=== PATIENT | female | born 1945 | race Caucasian/White ===

== ENCOUNTER 2024-09-24 18:05 | Emergency (ER) | payer MEDICARE ==
--- NOTE | 2024-09-24 18:30 | ERPHSYRPT ---
- History of Present Illness Time Seen by Provider: 09/24/24 18:24 Source: patient Exam Limitations: no limitations Patient Subjective Stated Complaint: PT HERE FOR THREATENING TO WRAP O2 CORD AROUND HER NECK AT THE [facility], THEY STATE BY POLICY THE HAVE TO BRING HER TO ER, PT DENIES WANTING TO HARM HER SELF AND SHE IS DOES NOT KNOW WHY SHE IS HERE Triage Nursing Assessment: PT ALERT, BUT CONFUSED, O2 PER 2L NC , ABD SOFT, RESP EASY, NO COUGH, Physician History: 79-year-old female baseline dementia presents to our ED for evaluation of suicide gesture. Per custodial report, patient threatened to wrap a oxygen cord around her neck. Patient denies making these threats. Patient otherwise feels well. She denies pain. Patient voices no other complaints or concerns at this time. Portions of this note were created with voice recognition technology. There may be grammatical, spelling, punctuation or sound alike errors Timing/Duration: today Severity: moderate Modifying Factors: Improves With: nothing Associated Symptoms: denies symptoms Allergies/Adverse Reactions: ciprofloxacin [From Cipro] Allergy (Unknown, Verified 09/24/24 22:13) codeine Allergy (Unknown, Verified 09/24/24 22:13) gabapentin Allergy (Unknown, Verified 09/24/24 22:13) Influenza Virus Vaccines Allergy (Unknown, Verified 09/24/24 22:13) kiwi Allergy (Unknown, Verified 09/24/24 22:13) latex Allergy (Unknown, Verified 09/24/24 22:13) testosterone Allergy (Unknown, Verified 09/24/24 22:13) Immunizations Up to Date: Yes Travel Risk - International Travel Have you traveled outside of the country in past 3 weeks: No - Emerging Infectious Disease Are you exhibiting symptoms associated with any current EIDs: No - Review of Systems Constitutional: No Symptoms, No Fever, No Chills Eyes: No Symptoms Ears, Nose, & Throat: No Symptoms Respiratory: No Symptoms, No Cough, No Dyspnea Cardiac: No Symptoms, No Chest Pain, No Edema, No Syncope Abdominal/Gastrointestinal: No Symptoms, No Abdominal Pain, No Nausea, No Vomiting, No Diarrhea Genitourinary Symptoms: No Symptoms, No Dysuria Musculoskeletal: No Symptoms, No Back Pain, No Neck Pain Skin: No Symptoms, No Rash Neurological: No Symptoms, No Dizziness, No Focal Weakness, No Sensory Changes Psychological: No Symptoms Endocrine: No Symptoms Hematologic/Lymphatic: No Symptoms Immunological/Allergic: No Symptoms All Other Systems: Reviewed and Negative - Past Medical History Pertinent Past Medical History: Yes Cardiac History: Hypertension Endocrine Medical History: Diabetes Type II, Hypothyroidism GI Medical History: GERD Psycho-Social History: Anxiety, Depression - Past Surgical History Past Surgical History: (UNKNOWN) - Social History Smoking Status: Former smoker Exposure to second hand smoke: No Drug Use: none - Social Determinants of Health Will the patient participate in the screening: Unable to obtain - Nursing Vital Signs Nursing Vital Signs: Initial Vital Signs Temperature 96.1 F 09/24/24 18:10 Pulse Rate 90 09/24/24 18:10 Respiratory Rate 17 09/24/24 18:10 Blood Pressure 174/101 09/24/24 18:10 O2 Sat by Pulse Oximetry 98 09/24/24 18:10 Pain Scale Pain Intensity 0 - Physical Exam General Appearance: no apparent distress, alert Eye Exam: PERRL/EOMI, eyes nml inspection Ears, Nose, Throat Exam: normal ENT inspection, TMs normal, pharynx normal, moist mucous membranes Neck Exam: normal inspection, non-tender, supple, full range of motion Respiratory Exam: normal breath sounds, lungs clear, airway intact, No respiratory distress Cardiovascular Exam: regular rate/rhythm, normal heart sounds, normal peripheral pulses Gastrointestinal/Abdomen Exam: soft, normal bowel sounds, No tenderness, No mass Back Exam: normal inspection, normal range of motion, No CVA tenderness, No vertebral tenderness Extremity Exam: normal inspection, normal range of motion, pelvis stable Neurologic Exam: alert, oriented x 3, cooperative, normal mood/affect, sensation nml, No motor deficits Skin Exam: normal color, warm, dry, No rash Lymphatic Exam: No adenopathy SpO2 Interpretation: normal SpO2: 98 O2 Delivery: Room Air - Course Nursing assessment & vital signs reviewed: Yes - CT Exams Head CT Interpretation: Tele-radiologist Report (Nonacute senile brain) Ordered Tests: Active Orders 24 hr Category Date 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 Care 09/24/24 18:27 Active IV Insertion STAT Care 09/24/24 18:26 Active HEAD WITHOUT CONTRAST [CT] Stat Exams 09/24/24 18:27 Taken ACETAMINOPHEN Stat Lab 09/24/24 18:35 Completed CBC W DIFF Stat Lab 09/24/24 18:35 Completed CMP Stat Lab 09/24/24 18:35 Completed CULTURE,URINE Stat Lab 09/24/24 20:44 Received ETHYL ALCOHOL Stat Lab 09/24/24 18:35 Completed SALICYLATE Stat Lab 09/24/24 18:35 Completed UA W/RFX UR CULTURE Stat Lab 09/24/24 20:44 Completed Urine Triage Profile Stat Lab 09/24/24 19:15 Completed Medication Summary Discontinued Medications Generic Name Dose Route Start Last Admin Trade Name Yuriy PRN Reason Stop Dose Admin Ceftriaxone Sodium 1 gm in 100 mls @ 200 mls/hr 09/24/24 22:06 09/24/24 22:21 Rocephin 1 Gm / 100 Ml Nacl IV 09/24/24 22:35 20 ml/hr STAT ONE 20 mls/hr Administration Ceftriaxone Sodium Confirm 09/24/24 22:20 Rocephin 1 Gm / 100 Ml Nacl Administered 09/24/24 22:21 Dose 1 gm in 100 mls @ ud IV .STK-MED ONE Lab/Rad Data: Laboratory Result Diagrams 09/24/24 18:35 09/24/24 18:35 Laboratory Results 09/24/24 09/24/24 09/24/24 Range/Units 20:44 19:15 18:35 WBC (3.98-10.04) x10^3/uL RBC (3.93-5.22) x10^6/uL Hgb (11.2-15.7) g/dL Hct (34.1-44.9) % MCV (79.4-94.8) fL MCH (25.6-32.2) pg MCHC (32.2-35.5) g/dL RDW (11.7-14.4) % Plt Count (182-369) x10^3/uL MPV (9.4-12.3) fL Gran % (34.0-71.1) % Immature Gran % (Auto) (0.001-0.429) % Nucleat RBC Rel Count (0.00-0.2) % Eos # (Auto) (0.04-0.36) x10^3/uL Immature Gran # (Auto) (0.001-0.031) x10^3u/L Absolute Lymphs (auto) (1.18-3.74) x10^3/uL Absolute Monos (auto) (0.24-0.86) x10^3/uL Absolute Nucleated RBC (0.00-0.012) x10^3u/L Lymphocytes % (19.3-51.7) % Monocytes % (4.7-12.5) % Eosinophils % (0.7-5.8) % Basophils % (0.1-1.2) % Absolute Granulocytes (1.56-6.13) x10^3/uL Basophils # (0.01-0.08) x10^3/uL Sodium 137 (135-145) mmol/L Potassium 3.4 L (3.5-5.1) mmol/L Chloride 100 (98-107) mmol/L Carbon Dioxide 36 H (22-30) mmol/L Anion Gap 4.1 L (5-15) MEQ/L BUN 24 H (7-17) mg/dL Creatinine 0.88 (0.52-1.04) mg/dL Estimated GFR 66.4 ML/MIN Glucose 118 H (74-106) mg/dL Calcium 9.4 (8.4-10.2) mg/dL Total Bilirubin 0.30 (0.2-1.3) mg/dL AST 23 (14-36) U/L ALT 13 (0-35) U/L Alkaline Phosphatase 68 (38-126) U/L Serum Total Protein 6.1 L (6.3-8.2) g/dL Albumin 2.7 L (3.5-5.0) g/dL Urine Color Yellow (Yellow) Urine Appearance Cloudy A (Clear) Urine pH 7.0 (4.6-8.0) Ur Specific [place] 1.020 (1.005-1.030) Urine Protein >=1000 A (Negative) Urine Glucose (UA) Negative (Negative) mg/dL Urine Ketones Negative (Negative) Urine Blood Large A (Negative) Urine Nitrite Positive A (Negative) Urine Bilirubin Negative (Negative) Urine Urobilinogen 1.0 A (0.2) mg/dL Ur Leukocyte Esterase Small A (Negative) U Hyaline Cast (Auto) 3-5 A (0-2) /LPF Urine Microscopic RBC >100 A (0-5) /HPF Urine Microscopic WBC >100 A (0-5) /HPF Ur Epithelial Cells None Seen (None Seen) /HPF Urine Bacteria Many A (None Seen) /HPF Urine Culture Reflexed YES (NO) Salicylates < 1.0 L (2-20) mg/dL Urine Opiates Level POSITIVE A (NEGATIVE) Ur Methadone NEGATIVE (NEGATIVE) Acetaminophen < 10 L (10-30) ug/ml Urine Barbiturates NEGATIVE (NEGATIVE) Ur Phencyclidine (PCP) NEGATIVE (NEGATIVE) Urine Amphetamine NEGATIVE (NEGATIVE) U Benzodiazepine Level POSITIVE A (NEGATIVE) Urine Cocaine NEGATIVE (NEGATIVE) Urine Marijuana (THC) NEGATIVE (NEGATIVE) Ethyl Alcohol < 10 (0-10) mg/dL 09/24/24 Range/Units 18:35 WBC 7.0 (3.98-10.04) x10^3/uL RBC 3.64 L (3.93-5.22) x10^6/uL Hgb 11.0 L (11.2-15.7) g/dL Hct 34.4 (34.1-44.9) % MCV 94.5 (79.4-94.8) fL MCH 30.2 (25.6-32.2) pg MCHC 32.0 L (32.2-35.5) g/dL RDW 14.1 (11.7-14.4) % Plt Count 216 (182-369) x10^3/uL MPV 9.5 (9.4-12.3) fL Gran % 74.3 H (34.0-71.1) % Immature Gran % (Auto) 0.3 (0.001-0.429) % Nucleat RBC Rel Count 0.0 (0.00-0.2) % Eos # (Auto) 0.08 (0.04-0.36) x10^3/uL Immature Gran # (Auto) 0.02 (0.001-0.031) x10^3u/L Absolute Lymphs (auto) 1.37 (1.18-3.74) x10^3/uL Absolute Monos (auto) 0.33 (0.24-0.86) x10^3/uL Absolute Nucleated RBC 0.00 (0.00-0.012) x10^3u/L Lymphocytes % 19.5 (19.3-51.7) % Monocytes % 4.7 (4.7-12.5) % Eosinophils % 1.1 (0.7-5.8) % Basophils % 0.1 (0.1-1.2) % Absolute Granulocytes 5.23 (1.56-6.13) x10^3/uL Basophils # 0.01 (0.01-0.08) x10^3/uL Sodium (135-145) mmol/L Potassium (3.5-5.1) mmol/L Chloride (98-107) mmol/L Carbon Dioxide (22-30) mmol/L Anion Gap (5-15) MEQ/L BUN (7-17) mg/dL Creatinine (0.52-1.04) mg/dL Estimated GFR ML/MIN Glucose (74-106) mg/dL Calcium (8.4-10.2) mg/dL Total Bilirubin (0.2-1.3) mg/dL AST (14-36) U/L ALT (0-35) U/L Alkaline Phosphatase (38-126) U/L Serum Total Protein (6.3-8.2) g/dL Albumin (3.5-5.0) g/dL Urine Color (Yellow) Urine Appearance (Clear) Urine pH (4.6-8.0) Ur Specific [place] (1.005-1.030) Urine Protein (Negative) Urine Glucose (UA) (Negative) mg/dL Urine Ketones (Negative) Urine Blood (Negative) Urine Nitrite (Negative) Urine Bilirubin (Negative) Urine Urobilinogen (0.2) mg/dL Ur Leukocyte Esterase (Negative) U Hyaline Cast (Auto) (0-2) /LPF Urine Microscopic RBC (0-5) /HPF Urine Microscopic WBC (0-5) /HPF Ur Epithelial Cells (None Seen) /HPF Urine Bacteria (None Seen) /HPF Urine Culture Reflexed (NO) Salicylates (2-20) mg/dL Urine Opiates Level (NEGATIVE) Ur Methadone (NEGATIVE) Acetaminophen (10-30) ug/ml Urine Barbiturates (NEGATIVE) Ur Phencyclidine (PCP) (NEGATIVE) Urine Amphetamine (NEGATIVE) U Benzodiazepine Level (NEGATIVE) Urine Cocaine (NEGATIVE) Urine Marijuana (THC) (NEGATIVE) Ethyl Alcohol (0-10) mg/dL - Progress Progress: improved Progress Note: 79-year-old female history of dementia presents to our ED via EMS from [facility] for evaluation of suicide gesture. Physical exam nonremarkable. Workup reveals urinary tract infection. Patient received a dose of Rocephin in our ED. Prescription for Keflex forwarded to patient's pharmacy. Patient was evaluated by Shannan eHad from [facility] at approximately 1 AM. Patient cleared for discharge with a safety plan. Patient has been cooperative during her stay in our ED. no indication for further workup. Patient voices no other complaints or concerns at this time. Portions of this note were created with voice recognition technology. There may be grammatical, spelling, punctuation or sound alike errors Complexity of problem addressed is moderate acute complicated. No critical care time. Complexity of data reviewed analyzes extensive. Test ordered test reviewed results analyzed and correlated clinically with history and physical exam. Management discussed with [facility]. Risk of complication and or risk of morbidity/mortality of patient management is moderate. A prescription for Keflex provided to patient for treatment of urinary tract infection. Vital stable. Time spent to discharge patient is approximately 15 minutes. Plan of care established for shared decision making. No social determinants of health present to impede follow-up. Portions of this note were created with voice recognition technology. There may be grammatical, spelling, punctuation or sound alike errors 09/25/24 04:19 Counseled pt/family regarding: lab results, diagnosis, need for follow-up - Departure Departure Disposition: Home Clinical Impression: UTI (urinary tract infection), Suicide gesture Condition: Stable Critical Care Time: No Referrals: JEANETTE REICH [Primary Care Provider] - Follow up/PCP as directed Additional Instructions: Discharge/Care Plan CARMELITA SIGALA was seen on 09/25/24 in the Emergency Room. The patient was counseled regarding Diagnosis,Lab results, Imaging studies, need for follow up and when to return to the Emergency Room. Prescriptions given: Discharge Note I have spoken with the patient and/or caregivers. I have explained the patient's condition, diagnosis and treatment plan based on the information available to me at this time. I have answered the patient's and/or caregiver's questions and addressed any concerns. The patient and/or caregivers have as good understanding of the patient's diagnosis, condition and treatment plan as can be expected at this point. The vital signs have been stable. The patient's condition is stable and appropriate for discharge from the emergency department. The patient will pursue further outpatient evaluation with the primary care physician or other designated or consulting physician as outlined in the discharge instructions. The patient and/or caregivers are agreeable to this plan of care and follow-up instructions have been explained in detail. The patient and/or caregivers have received these instruction. The patient/and or caregivers are aware that any significant change in condition or worsening of symptoms should prompt an immediate return to this or the closest emergency department or call 911. Prescriptions: Cephalexin Mh 500 mg [Keflex 500 mg] 500 mg PO TID 7 Days #21 cap
[2024-09-24 18:40] LABS: Absolute Neutrophil Ct (ANC) 5.23 x10^3/uL (1.56-6.13); BASOPHIL % 0.1 % (0.1-1.2); Basophil (Absolute #) 0.01 x10^3/uL (0.01-0.08); Eosinophil % 1.1 % (0.7-5.8); Eosinophil (Absolute #) 0.08 x10^3/uL (0.04-0.36); Hematocrit 34.4 % (34.1-44.9); IMMATURE GRAN # 0.02 x10^3u/L (0.001-0.031); IMMATURE GRAN % 0.3 % (0.001-0.429); Lymphocyte (Absolute #) 1.37 x10^3/uL (1.18-3.74); Lymphocytes % 19.5 % (19.3-51.7); Mean Cell Volume 94.5 fL (79.4-94.8); Mean Corpuscular Hemoglobin 30.2 pg (25.6-32.2); Mean Platelet Volume 9.5 fL (9.4-12.3); Monocyte (Absolute #) 0.33 x10^3/uL (0.24-0.86); Monocytes % 4.7 % (4.7-12.5); Neutrophil % 74.3 % (34.0-71.1); Platelet Count 216 x10^3/uL (182-369); Red Blood Count 3.64 x10^6/uL (3.93-5.22); Red Cell Distribution Width 14.1 % (11.7-14.4)
[2024-09-24 18:54] LABS: ACETAMINOPHEN < 10 ug/ml (10-30); ALBUMIN 2.7 g/dL (3.5-5.0); ALKALINE PHOSPHATASE 68 U/L (38-126); ANION GAP 4.1 MEQ/L (5-15); BLOOD UREA NITROGEN 24 mg/dL (7-17); CHLORIDE 100 mmol/L (98-107); Calcium 9.4 mg/dL (8.4-10.2); Carbon Dioxide 36 mmol/L (22-30); Creatinine 1 0.88 mg/dL (0.52-1.04); EST GLOMERULAR FILTRATION RATE 66.4 ML/MIN; ETHYL ALCOHOL < 10 mg/dL (0-10); Glucose 118 mg/dL (74-106); Potassium 3.4 mmol/L (3.5-5.1); SALICYLATE < 1.0 mg/dL (2-20); SGOT/AST 23 U/L (14-36); SGPT/ALT 13 U/L (0-35); SODIUM 137 mmol/L (135-145); Total Protein 6.1 g/dL (6.3-8.2)
[2024-09-24 20:02] LABS: Amphetamine,Urine NEGATIVE (NEGATIVE); Barbiturate,Urine NEGATIVE (NEGATIVE); Benzodiazepine,Urine POSITIVE (NEGATIVE); Cocaine,Urine NEGATIVE (NEGATIVE); Methadone,Urine NEGATIVE (NEGATIVE); Opiate,Urine POSITIVE (NEGATIVE); PCP,Urine NEGATIVE (NEGATIVE); THC,Urine NEGATIVE (NEGATIVE)
[2024-09-24 21:22] LABS: Appearance Cloudy (Clear); Bacteria Many /HPF (None Seen); Bilirubin Negative (Negative); Blood Large (Negative); Epithelial Cells None Seen /HPF (None Seen); Glucose, Urine Negative (Negative); Ketones Negative (Negative); Leukocyte Esterase Small (Negative); Nitrite Positive (Negative); Protein,Urine Dip >=1000 (Negative); RBC >100 /HPF (0-5); WBC >100 /HPF (0-5)
[2024-09-24] MEDS ORDERED: ROCEPHIN 1 GM / 100 ML NaCl 1 GM/100 ML IVPB IV ONE (22:20)
[2024-09-24] MEDS: ROCEPHIN 1 GM / 100 ML NaCl 1 GM/100 ML IVPB IV ONE (22:21)
[2024-09-25 00:13] VITALS: TEMP 98.4
[2024-09-25 06:03] VITALS: PULSE 68; RESP 31; O2SAT 96
[2024-09-25 06:08] VITALS: BP 144/72
--- NOTE | 2024-09-25 08:42 | XRAY ---
Indication: Confusion. Multiple contiguous axial images obtained through the head without contrast. Comparison: None Age-appropriate global atrophy and mild periventricular degenerative micro-ischemia bilaterally. No acute intracranial hemorrhage, abnormal extra-axial fluid collection, or mass effect. Fourth ventricle is midline without hydrocephalus. Bony calvarium intact. Visualized paranasal sinuses and mastoid air cells are clear. Impression: Nonacute senile brain.
== END 2024-09-25 05:58 | disposition home or self-care (01) ==
LOC: ED 18:05
DX: N39.0 Urinary tract infection, site not specified (principal); R45.851 Suicidal ideations; F03.A4 Unspecified dementia, mild, with anxiety; I10 Essential (primary) hypertension; E11.9 Type 2 diabetes mellitus without complications
CPT/HCPCS: 36415; 70450; 80053; 80143; 80179; 80307; 81001; 82077; 85025; 87077; 87086; 87186; 93041; 96374; 99285; Q3014; 99284; J0696